=== PATIENT | female | born 1965 | race Two or more races ===

== ENCOUNTER → 2017-04-17 | Outpatient (CLI) | payer BC | END | disposition home or self-care (01) | LOC: CFH 10:14 | PROVIDERS: ATTEND Family Medicine | DX: Z12.31 Encounter for screening mammogram for malignant neoplasm of breast (principal) | CPT/HCPCS: G0202 ==

== ENCOUNTER 2018-11-08 08:10 | Outpatient (CLI) | payer BC | END 2018-11-08 23:59 | disposition home or self-care (01) | LOC: CFH 08:10 | PROVIDERS: ATTEND Family Medicine | DX: Z12.31 Encounter for screening mammogram for malignant neoplasm of breast (principal); D24.1 Benign neoplasm of right breast | CPT/HCPCS: 76377; 76641; 77067 ==

== ENCOUNTER → 2020-05-03 | Outpatient (CLI) | payer BC | END | disposition home or self-care (01) | LOC: CFH 09:48 | PROVIDERS: ATTEND Family Medicine | DX: Z12.31 Encounter for screening mammogram for malignant neoplasm of breast (principal); D24.1 Benign neoplasm of right breast | CPT/HCPCS: 76641; 77063; 77067 ==